=== PATIENT | male | born 1970 | race African-American/Black ===

== ENCOUNTER 2025-05-14 23:08 | Emergency (ER) | payer MEDICAID ==
[~2025-05-14] VITALS: Ht 167.6 cm; Wt 91.3 kg
[2025-05-14 23:13] VITALS: O2SAT 98
[2025-05-14 23:14] VITALS: TEMP 36.9; O2SAT 99
[2025-05-15 01:42] VITALS: BP 113/86; PULSE 74; RESP 18
[2025-05-15] MEDS: KETOROLAC 15MG/ML VIAL IM ONE (01:42)
[2025-05-15] MEDS ORDERED: POLY17PO3 MT (02:21)
[2025-05-15] MEDS ORDERED: PHEN51GE9 TP (02:21)
== END 2025-05-15 02:54 | disposition home or self-care (01) ==
LOC: ER 23:08
DX: K64.2 Third degree hemorrhoids (principal)
CPT/HCPCS: 99283; 96372; J1885